=== PATIENT | male | born 1990 | race Hispanic/Latino ===

== ENCOUNTER 2020-07-07 15:15 | Observation (INO) | payer OTHER, SELFPAY ==
[2020-07-07 16:05] LABS: Basophils # (Auto) 0.1 K/mm3 (0.0-0.1); Basophils % (Auto) 1.4 % (0.0-1.8); Eosinophils # (Auto) 0.3 K/mm3 (0.0-0.4); Eosinophils % (Auto) 4.6 % (0.0-4.3); Hemoglobin 10.5 gm/dl (11.8-15.2); Lymphocytes # (Auto) 1.6 K/mm3 (1.2-5.4); Mean Corpuscular HGB Conc 33 % (32-34); Mean Corpuscular Volume 81 fl (84-94); Monocytes # (Auto) 0.7 K/mm3 (0.0-0.8); Monocytes % (Auto) 9.2 % (0.0-7.3); Platelet Count 242 K/mm3 (140-440); Red Blood Count 3.97 M/mm3 (3.65-5.03); Red Cell Distribution Width 15.7 % (13.2-15.2)
[2020-07-07 16:26] LABS: Albumin 3.6 g/dL (3.9-5); Calcium 9.1 mg/dL (8.4-10.2)
--- NOTE | 2020-07-07 17:02 | Emergency Department Report ---
ED General Adult HPI - General Chief complaint: Medical Clearance Stated complaint: UNKNOWN PUI?: No Time Seen by Provider: 07/07/20 16:43 Source: patient, RN notes reviewed, old records reviewed Mode of arrival: Ambulatory Limitations: Language Barrier - History of Present Illness Initial comments: The patient was evaluated in the emergency department for symptoms described in the history of present illness. He/she was evaluated in the context of the global COVID-19 pandemic, which necessitated consideration that the patient might be at risk for infection with the virus that causes COVID-19. Institutional protocols and algorithms that pertain to the evaluation of patients at risk for COVID-19 are in a state of rapid change based on information released by regulatory bodies including the CDC and federal and state organizations. These policies and algorithms were followed during the patient's care in the emergency department. Please note that these policies, procedures and recommendations changed on a rapid basis. Patient is a 29-year-old gentleman. He is not known to myself previously. He has a history of end-stage renal disease and is on hemodialysis. He does not have a primary care doctor or pocket cutter. He was admitted to this hospital at the end of last month for the aforementioned, and unfortunately case management was not able to secure outpatient hemodialysis chair time. He was thus instru cted to return to the emergency room. He presents to the ER today with a request for hemodialysis. He denies physical pain. He has lower extremity swelling. He denies headache, neck pain, chest pa in, abdominal pain, dysuria, fevers and chills. Severity scale (0 -10): 0 Worsens with: none Associated Symptoms: denies other symptoms - Related Data Previous Rx's Medication Instructions Recorded Last Taken Type ISOSORBIDE MONOnitrate [Imdur ER] 30 mg PO QDAY #30 tablet 06/27/20 Unknown Rx amLODIPine 10 mg PO DAILY #30 tablet 06/27/20 Unknown Rx carvediloL [Coreg] 12.5 mg PO BID #60 tablet 06/27/20 Unknown Rx hydrALAZINE [Apresoline TAB] 50 mg PO Q8HR #90 tablet 06/27/20 Unknown Rx oxyCODONE /ACETAMINOPHEN [Percocet 1 tab PO Q8H PRN #15 tablet 06/27/20 Unknown Rx 5/325 mg] Aspirin EC [Halfprin EC] 81 mg PO QDAY #30 tablet. 06/30/20 Unknown Rx Allergies Allergy/AdvReac Type Severity Reaction Status Date / Time No Known Allergies Allergy Unverified 06/22/20 09:06 ED Review of Systems ROS: Stated complaint: UNKNOWN Other details as noted in HPI Constitutional: denies: fever Respiratory: denies: cough Cardiovascular: edema. denies: chest pain Gastrointestinal: denies: abdominal pain Genitourinary: denies: dysuria Musculoskeletal: arthralgia Neurological: denies: weakness ED Past Medical Hx - Past Medical History Previous Medical History?: Yes Hx Hypertension: Yes - Surgical History Past Surgical History?: No - Social History Smoking Status: Never Smoker - Medications Home Medications: Home Medications Medication Instructions Recorded Confirmed Last Taken Type ISOSORBIDE MONOnitrate [Imdur ER] 30 mg PO QDAY #30 tablet 06/27/20 Unknown Rx amLODIPine 10 mg PO DAILY #30 tablet 06/27/20 Unknown Rx carvediloL [Coreg] 12.5 mg PO BID #60 tablet 06/27/20 Unknown Rx hydrALAZINE [Apresoline TAB] 50 mg PO Q8HR #90 tablet 06/27/20 Unknown Rx oxyCODONE /ACETAMINOPHEN [Percocet 1 tab PO Q8H PRN #15 tablet 06/27/20 Unknown Rx 5/325 mg] Aspirin EC [Halfprin EC] 81 mg PO QDAY #30 tablet. 06/30/20 Unknown Rx ED Physical Exam - General Limitations: Language Barrier General appearance: alert, in no apparent distress - Head Head exam: Present: atraumatic, normocephalic - Eye Eye exam: Present: normal appearance, EOMI. Absent: nystagmus - ENT ENT exam: Present: normal exam, normal orophraynx, mucous membranes moist, normal external ear exam - Neck Neck exam: Present: normal inspection, full ROM. Absent: tenderness, meningismus - Respiratory Respiratory exam: Present: normal lung sounds bilaterally, other (There is a right-sided thoracic permacath noted, without redness, pus or streaking). Absent: respiratory distress, wheezes, rales, rhonchi, stridor - Cardiovascular Cardiovascular Exam: Present: regular rate, normal rhythm, normal heart sounds. Absent: bradycardia, tachycardia, irregular rhythm, systolic murmur, diastolic murmur, rubs, gallop - GI/Abdominal GI/Abdominal exam: Present: soft, normal bowel sounds. Absent: distended, tenderness, guarding, rebound, rigid, pulsatile mass - Rectal Rectal exam: Present: deferred - Extremities Exam Extremities exam: Present: normal inspection, full ROM, pedal edema (2+ edema in the bilateral lower extremities), other (2+ pulses noted in the bilateral upper and lower extremities. There is no palpable cord. negative Homans sign. M uscular compartments are soft. The pelvis is stable.). Absent: calf tenderness - Back Exam Back exam: Present: normal inspection, full ROM. Absent: tenderness, CVA tenderness (R), CVA tenderness (L), paraspinal tenderness, vertebral tenderness - Neurological Exam Neurological exam: Present: alert, normal gait, other (No facial droop. Tongue midline. Extraocular movements intact bilaterally. Facial sensation intact to light touch in V1, V2, V3 distribution bilaterally. 5 and a 5 strength in 4 extremities. Sensation intact to light touch in 4 extremities.). Absent: motor sensory deficit - Psychiatric Psychiatric exam: Present: normal affect, normal mood - Skin Skin exam: Present: warm, dry, intact, normal color. Absent: rash ED Course Vital Signs 07/07/20 07/07/20 07/07/20 15:35 16:41 16:44 Temperature 98.2 F Pulse Rate 69 67 Pulse Rate [ Anterior Bilateral Throughout] Respiratory 18 18 Rate Respiratory Rate [Anterior Bilateral Throughout] Blood Pressure 132/74 126/78 Blood Pressure 126/74 [Right] O2 Sat by Pulse 99 98 Oximetry 07/07/20 07/07/20 07/07/20 16:46 17:00 17:16 Temperature Pulse Rate 62 70 63 Pulse Rate [ Anterior Bilateral Throughout] Respiratory 14 23 0 L Rate Respiratory Rate [Anterior Bilateral Throughout] Blood Pressure 126/78 126/78 126/78 Blood Pressure [Right] O2 Sat by Pulse Oximetry 07/07/20 07/07/20 17:30 17:55 Temperature Pulse Rate 72 Pulse Rate [ 60 Anterior Bilateral Throughout] Respiratory 13 Rate Respiratory 20 Rate [Anterior Bilateral Throughout] Blood Pressure 126/78 Blood Pressure [Right] O2 Sat by Pulse Oximetry ED Medical Decision Making - Lab Data Result diagrams: 07/07/20 15:50 07/07/20 15:50 Vital Signs 07/07/20 07/07/20 15:35 16:44 Temperature 98.2 F Pulse Rate 69 67 Respiratory 18 18 Rate Blood Pressure 132/74 Blood Pressure 126/74 [Right] O2 Sat by Pulse 99 98 Oximetry Lab Results 07/07/20 07/07/20 Range/Units 15:50 15:50 WBC 7.1 (4.5-11.0) K/mm3 RBC 3.97 (3.65-5.03) M/mm3 Hgb 10.5 L (11.8-15.2) gm/dl Hct 32.0 L (35.5-45.6) % MCV 81 L (84-94) fl MCH 26 L (28-32) pg MCHC 33 (32-34) % RDW 15.7 H (13.2-15.2) % Plt Count 242 (140-440) K/mm3 Lymph % (Auto) 22.0 (13.4-35.0) % Harmon % (Auto) 9.2 H (0.0-7.3) % Eos % (Auto) 4.6 H (0.0-4.3) % Baso % (Auto) 1.4 (0.0-1.8) % Lymph # 1.6 (1.2-5.4) K/mm3 Harmon # 0.7 (0.0-0.8) K/mm3 Eos # 0.3 (0.0-0.4) K/mm3 Baso # 0.1 (0.0-0.1) K/mm3 Seg Neutrophils % 62.8 (40.0-70.0) % Seg Neutrophils # 4.5 (1.8-7.7) K/mm3 Sodium 135 L (137-145) mmol/L Potassium 6.4 H* (3.6-5.0) mmol/L Chloride 101.6 (98-107) mmol/L Carbon Dioxide 21 L (22-30) mmol/L Anion Gap 19 mmol/L BUN 92 H (9-20) mg/dL Creatinine 7.4 H (0.8-1.3) mg/dL Estimated GFR 9 ml/min BUN/Creatinine Ratio 12 % Glucose 90 (75-100) mg/dL Calcium 9.1 (8.4-10.2) mg/dL Total Bilirubin 0.20 (0.1-1.2) mg/dL AST 11 (5-40) units/L ALT 11 (7-56) units/L Alkaline Phosphatase 66 (35-129) units/L Total Protein 7.6 (6.3-8.2) g/dL Albumin 3.6 L (3.9-5) g/dL Albumin/Globulin Ratio 0.9 % - EKG Data -: EKG Interpreted by Me EKG shows normal: sinus rhythm Rate: normal - Medical Decision Making Differential diagnosis, include but not limited to: Azotemia, uremia, metabolic acidosis, hyperkalemia, case management patient Assessment and plan: 29-year-old gentleman requiring urgent/emergent hemodialysis, manifest by hyperkalemia of 6.4, and azotemia, blood urea nitrogen greater than 90. He does not have a primary pocket cutter. Contacted nephrology on-call, Dr. Pruitt, he will arrange for urgent hemodialysis. Patient will be treated medically for his hyperkalemia. Hospital physician, Dr. Dru Garcia to admit Please note that I am conversant in Ukrainian. The patient denied new or different physical pain to myself. He is amenable to this plan of care. He is noted to be playing on his cellular phone at this time, and he is in no acute distress. Will defer to inpatient team to follow-up with case management Critical care attestation.: If time is entered above; I have spent that time in minutes in the direct care of this critically ill patient, excluding procedure time. ED Disposition Clinical Impression: Hyperkalemia, End-stage renal disease needing dialysis, Azotemia Volume overload Qualifiers: Hypervolemia type: unspecified Qualified Code(s): E87.70 - Fluid overload, unspecified Disposition: 09 OP ADMIT IP TO THIS HOSP Is pt being admited?: Yes Does the pt Need Aspirin: No Condition: Serious
[2020-07-07] MEDS ORDERED: ALBUTEROL 2.5 MG/3 ML NEBU IH ONE (17:12)
[2020-07-07] MEDS ORDERED: SODIUM BICARB 8.4% 50 MEQ/50 ML SYRINGE IV ONE (17:13)
[2020-07-07] MEDS ORDERED: CALCIUM GLUCONATE 1,000 MG in SODIUM CHLORIDE 0.9% 100 ML IV ONE (17:13)
[2020-07-07] MEDS ORDERED: SODIUM POLYSTYRENE 15 GM/60 ML ORAL LIQD PO ONE (17:13)
[2020-07-07] MEDS ORDERED: FUROSEMIDE 40 MG/4 ML INJ IV ONE (17:13)
[2020-07-07] MEDS ORDERED: SODIUM CHLORIDE 0.9% 100 ML IV PRN (17:27)
[2020-07-07] MEDS ORDERED: oxyCODONE /ACETAMINOPHEN 5-325MG TAB PO PRN (21:45)
--- NOTE | 2020-07-07 21:45 | History and Physical Report ---
History of Present Illness Date of examination: 07/07/20 Date of admission: 07/07/20 17:16 Chief complaint: Patient comes for next hemodialysis for last 10 days History of present illness: 29-year-old Yoruba-speaking male with history of end-stage renal disease, hyp ertension and coronary artery disease comes in for missed dialysis for the last 10 days. Patient had dialysis August last month. Patient does not have a hemodialysis set up as outpatient probably because of his immigration status. Patient has slight shortness of breath and lower extremity swelling. No orthopnea. Shortness of breath on exertion. Generalized weakness present. No fever or chills. No exposure to coronavirus. No chest pain. - Past Medical History Previous Medical History?: Yes Hypertension ESRD CAD - Surgical History Past Surgical History?: No - Social History Smoking Status: Never Smoker -Family history Hypertension - Medications Home Medications: Home Medications Medication Instructions Recorded Confirmed Last Taken Type ISOSORBIDE MONOnitrate [Imdur ER] 30 mg PO QDAY #30 tablet 06/27/20 Unknown Rx amLODIPine 10 mg PO DAILY #30 tablet 06/27/20 Unknown Rx carvediloL [Coreg] 12.5 mg PO BID #60 tablet 06/27/20 Unknown Rx hydrALAZINE [Apresoline TAB] 50 mg PO Q8HR #90 tablet 06/27/20 Unknown Rx oxyCODONE /ACETAMINOPHEN [Percocet 1 tab PO Q8H PRN #15 tablet 06/27/20 Unknown Rx 5/325 mg] Aspirin EC [Halfprin EC] 81 mg PO QDAY #30 tablet. 06/30/20 Unknown Rx Review of Systems ROS: Stated complaint: Generalized weakness and lower extremity swelling Missed hemodialysis Other details as noted in HPI Constitutional no weight loss or weight gain no fever or chills HEENT no sore throat no post nasal drip no diplopia Neck no neck stiffness no lymph gland enlargement Chest and lungs no shortness of breath cough or wheezing CVS no chest pain no diaphoresis no palpitations GI no nausea no vomiting no diarrhea Genitourinary system no dysuria no flank pain Musculoskeletal system no muscle pains no joint pains [employer] no syncope no seizures Skin no rash no itching Psychiatric no depression no homicidal or suicidal tendencies Hematologic no lymphedema or bruising Endocrine no polydipsia no polyuria no cold intolerance no heat intolerance Medications and Allergies Allergies Allergy/AdvReac Type Severity Reaction Status Date / Time No Known Allergies Allergy Unverified 06/22/20 09:06 Home Medications Medication Instructions Recorded Confirmed Last Taken Type ISOSORBIDE MONOnitrate [Imdur ER] 30 mg PO QDAY #30 tablet 06/27/20 Unknown Rx amLODIPine 10 mg PO DAILY #30 tablet 06/27/20 Unknown Rx carvediloL [Coreg] 12.5 mg PO BID #60 tablet 06/27/20 Unknown Rx hydrALAZINE [Apresoline TAB] 50 mg PO Q8HR #90 tablet 06/27/20 Unknown Rx oxyCODONE /ACETAMINOPHEN [Percocet 1 tab PO Q8H PRN #15 tablet 06/27/20 Unknown Rx 5/325 mg] Aspirin EC [Halfprin EC] 81 mg PO QDAY #30 tablet. 06/30/20 Unknown Rx Active Meds: Active Medications Sodium Chloride (Nacl 0.9%) 100 mls @ 999 mls/hr IV BETHEL PRN PRN Reason: Hypotension Exam - Constitutional Vitals: Temp Pulse Resp BP Pulse Ox 98.2 F 69 20 130/76 98 07/07/20 18:45 07/07/20 19:30 07/07/20 18:51 07/07/20 19:30 07/07/20 18:51 General appearance: Present: mild distress, well-nourished - EENT Eyes: Present: PERRL ENT: hearing intact, clear oral mucosa - Neck Neck: Present: supple, normal ROM - Respiratory Respiratory effort: normal Respiratory: bilateral: CTA - Cardiovascular Heart rate: 78 Rhythm: regular Heart Sounds: Present: S1 & S2. Absent: rub, click - Extremities Extremities: pulses symmetrical, No edema Peripheral Pulses: within normal limits - Abdominal General gastrointestinal: Present: soft, non-tender, tender, non-distended, normal bowel sounds Male genitourinary: Present: normal, left inguinal hernia - Rectal Rectal Exam: deferred - Integumentary Integumentary: Present: clear, warm, dry - Musculoskeletal Musculoskeletal: gait normal, strength equal bilaterally - Psychiatric Psychiatric: appropriate mood/affect, intact judgment & insight - Neurologic Neurologic: CNII-XII intact, moves all extremities, other HEART Score - HEART Score History: Slightly suspicious Age: < 45 Risk factors: 1-2 risk factors Troponin: < normal limit - Critical Actions Critical Actions: 0-3 pts:0.9-1.7%risk of adverse cardiac event.Candidate for discharge Results - Labs CBC & Chem 7: 07/07/20 15:50 07/07/20 15:50 Labs: Laboratory Last Values WBC 7.1 K/mm3 (4.5-11.0) 07/07/20 15:50 RBC 3.97 M/mm3 (3.65-5.03) 07/07/20 15:50 Hgb 10.5 gm/dl (11.8-15.2) L 07/07/20 15:50 Hct 32.0 % (35.5-45.6) L 07/07/20 15:50 MCV 81 fl (84-94) L 07/07/20 15:50 MCH 26 pg (28-32) L 07/07/20 15:50 MCHC 33 % (32-34) 07/07/20 15:50 RDW 15.7 % (13.2-15.2) H 07/07/20 15:50 Plt Count 242 K/mm3 (140-440) 07/07/20 15:50 Lymph % (Auto) 22.0 % (13.4-35.0) 07/07/20 15:50 Bay % (Auto) 9.2 % (0.0-7.3) H 07/07/20 15:50 Eos % (Auto) 4.6 % (0.0-4.3) H 07/07/20 15:50 Baso % (Auto) 1.4 % (0.0-1.8) 07/07/20 15:50 Lymph # 1.6 K/mm3 (1.2-5.4) 07/07/20 15:50 Bay # 0.7 K/mm3 (0.0-0.8) 07/07/20 15:50 Eos # 0.3 K/mm3 (0.0-0.4) 07/07/20 15:50 Baso # 0.1 K/mm3 (0.0-0.1) 07/07/20 15:50 Seg Neutrophils % 62.8 % (40.0-70.0) 07/07/20 15:50 Seg Neutrophils # 4.5 K/mm3 (1.8-7.7) 07/07/20 15:50 Sodium 135 mmol/L (137-145) L 07/07/20 15:50 Potassium 6.4 mmol/L (3.6-5.0) H* 07/07/20 15:50 Chloride 101.6 mmol/L (98-107) 07/07/20 15:50 Carbon Dioxide 21 mmol/L (22-30) L 07/07/20 15:50 Anion Gap 19 mmol/L 07/07/20 15:50 BUN 92 mg/dL (9-20) H 07/07/20 15:50 Creatinine 7.4 mg/dL (0.8-1.3) H 07/07/20 15:50 Estimated GFR 9 ml/min 07/07/20 15:50 BUN/Creatinine Ratio 12 % 07/07/20 15:50 Glucose 90 mg/dL (75-100) 07/07/20 15:50 Calcium 9.1 mg/dL (8.4-10.2) 07/07/20 15:50 Total Bilirubin 0.20 mg/dL (0.1-1.2) 07/07/20 15:50 AST 11 units/L (5-40) 07/07/20 15:50 ALT 11 units/L (7-56) 07/07/20 15:50 Alkaline Phosphatase 66 units/L (35-129) 07/07/20 15:50 Total Protein 7.6 g/dL (6.3-8.2) 07/07/20 15:50 Albumin 3.6 g/dL (3.9-5) L 07/07/20 15:50 Albumin/Globulin Ratio 0.9 % 07/07/20 15:50 Short CBC 07/07/20 Range/Units 15:50 WBC 7.1 (4.5-11.0) K/mm3 Hgb 10.5 L (11.8-15.2) gm/dl Hct 32.0 L (35.5-45.6) % Plt Count 242 (140-440) K/mm3 BMP 07/07/20 15:50 Sodium 135 L Potassium 6.4 H* Chloride 101.6 Carbon Dioxide 21 L BUN 92 H Creatinine 7.4 H Glucose 90 Calcium 9.1 Liver Function 07/07/20 Range/Units 15:50 Total Bilirubin 0.20 (0.1-1.2) mg/dL AST 11 (5-40) units/L ALT 11 (7-56) units/L Alkaline Phosphatase 66 (35-129) units/L Albumin 3.6 L (3.9-5) g/dL Gardiner/IV: IV Catheter Type [Left Hand] INT / Saline Lock IV Catheter Type [Right INT / Saline Lock Internal Jugular] Assessment and Plan Advance Directives: Yes (Full code) VTE prophylaxis?: Chemical Plan of care discussed with patient/family: Yes - Patient Problems (1) Hyperkalemia Current Visit: Yes Status: Acute Plan to address problem: Hyperkalemia treated in the emergency room Patient received calcium gluconate sodium bicarbonate and Kayexalate in the emergency room Also patient to get hemodialysis with low potassium bath (2) End-stage renal disease needing dialysis Current Visit: Yes Status: Acute Plan to address problem: Continue hemodialysis Nephrology consult requested (3) Volume overload Current Visit: Yes Status: Acute Qualifiers: Hypervolemia type: unspecified Qualified Code(s): E87.70 - Fluid overload, unspecified Plan to address problem: Patient is hemodialysis and increased ultrafiltration (4) Hypertension Current Visit: Yes Status: Chronic Qualifiers: Hypertension type: essential hypertension Qualified Code(s): I10 - Essential (primary) hypertension Plan to address problem: Continue antihypertensives Adjust medications if necessary (5) Coronary artery disease Current Visit: Yes Status: Acute Plan to address problem: Continue isosorbide mononitrate (6) DVT prophylaxis Current Visit: No Status: Acute Plan to address problem: Heparin subcu 5000 every 12 and GI prophylaxis (7) Discharge planning issues Current Visit: Yes Status: Acute Plan to address problem: Patient admitted in observation status If potassium level is normal and finishes hemodialysis patient can be discharged
[2020-07-07] MEDS ORDERED: ACETAMINOPHEN 325 MG TAB PO PRN (21:46)
[2020-07-07] MEDS ORDERED: ONDANSETRON 4 MG/2 ML INJ IV PRN (21:46)
[2020-07-07] MEDS ORDERED: METOCLOPRAMIDE 10 MG/2 ML INJ IV PRN ×2 (21:46→21:57)
[2020-07-07] MEDS ORDERED: HYDROmorphone 1 MG/1 ML INJ IV PRN (21:46)
[2020-07-07] MEDS: ASPIRIN EC 81 MG TAB PO SCH (22:17)
[2020-07-07] MEDS: FAMOTIDINE 10 MG TAB PO SCH (22:18)
[2020-07-07] MEDS: carvediloL 12.5 MG TAB PO SCH (22:18)
[2020-07-07] MEDS: hydrALAZINE 25 MG TAB PO SCH (22:19)
[2020-07-07] MEDS: HEPARIN 5,000 UNIT/1 ML VIAL SUB-Q SCH (22:19)
[2020-07-07] MEDS: amLODIPine 10 MG TAB PO SCH (22:24)
[2020-07-08] MEDS: hydrALAZINE 25 MG TAB PO SCH ×2 (06:41→14:00)
--- NOTE | 2020-07-08 08:45 | Consultation ---
History of Present Illness - Reason for Consult Consult date: 07/08/20 end stage renal disease Requesting physician: CHAU MYERS - History of Present Illness 29-year-old male with a history of end-stage renal disease who does not have an outpatient dialysis clinic. Presents to the hospital for dialysis. He denies any chest pain, shortness of breath or palpitations. No nausea or vomiting. He had diarrhea for daily couple of days prior to presentation but it has resolved. No lower extremity swelling. Past History Past Medical History: ESRD, hypertension Past Surgical History: Other (Permacath placement) Social history: lives with family. denies: prescription drug abuse, IV drug use Family history: no significant family history Medications and Allergies Allergies Allergy/AdvReac Type Severity Reaction Status Date / Time No Known Allergies Allergy Unverified 06/22/20 09:06 Home Medications Medication Instructions Recorded Confirmed Last Taken Type ISOSORBIDE MONOnitrate [Imdur ER] 30 mg PO QDAY #30 tablet 06/27/20 Unknown Rx amLODIPine 10 mg PO DAILY #30 tablet 06/27/20 Unknown Rx carvediloL [Coreg] 12.5 mg PO BID #60 tablet 06/27/20 Unknown Rx hydrALAZINE [Apresoline TAB] 50 mg PO Q8HR #90 tablet 06/27/20 Unknown Rx oxyCODONE /ACETAMINOPHEN [Percocet 1 tab PO Q8H PRN #15 tablet 06/27/20 Unknown Rx 5/325 mg] Aspirin EC [Halfprin EC] 81 mg PO QDAY #30 tablet. 06/30/20 Unknown Rx Active Meds: Active Medications Acetaminophen (Tylenol) 650 mg PO Q4H PRN PRN Reason: Pain MILD(1-3)/Fever >100.5/SORIA Amlodipine Besylate (Amlodipine) 10 mg PO DAILY [facility] Last Admin: 07/07/20 22:24 Dose: 10 mg Documented by: Aspirin (Halfprin Ec) 81 mg PO QDAY [facility] Last Admin: 07/07/20 22:17 Dose: 81 mg Documented by: Carvedilol (Coreg) 12.5 mg PO BID [facility] Last Admin: 07/07/20 22:18 Dose: 12.5 mg Documented by: Famotidine (Pepcid) 10 mg PO BID [facility] Last Admin: 07/07/20 22:18 Dose: 10 mg Documented by: Heparin Sodium (Porcine) (Heparin) 5,000 unit SUB-Q Q12HR [facility] Last Admin: 07/07/20 22:19 Dose: 5,000 unit Documented by: Hydralazine HCl (Apresoline) 50 mg PO Q8HR [facility] Last Admin: 07/08/20 06:41 Dose: 50 mg Documented by: Hydromorphone HCl (Dilaudid) 0.5 mg IV Q3H PRN PRN Reason: Pain , Severe (7-10) Sodium Chloride (Nacl 0.9%) 100 mls @ 999 mls/hr IV BETHEL PRN PRN Reason: Hypotension Isosorbide Mononitrate (Imdur) 30 mg PO QDAY [facility] Last Admin: 07/07/20 22:18 Dose: 30 mg Documented by: Metoclopramide HCl (Reglan) 5 mg IV Q6H PRN PRN Reason: Nausea And Vomiting Ondansetron HCl (Zofran) 4 mg IV Q8H PRN PRN Reason: Nausea And Vomiting Oxycodone/Acetaminophen (Percocet 5/325) 1 tab PO Q8H PRN PRN Reason: Pain, Moderate (4-6) Sodium Chloride (Sodium Chloride Flush Syringe 10 Ml) 10 ml IV BID [facility] Last Admin: 07/07/20 22:14 Dose: 10 ml Documented by: Sodium Chloride (Sodium Chloride Flush Syringe 10 Ml) 10 ml IV PRN PRN PRN Reason: LINE FLUSH Review of Systems All systems: negative (As noted in the history of present illness) Exam - Vital Signs Vital signs: Vital Signs Temp Pulse Resp BP Pulse Ox 98.2 F 69 18 132/74 99 07/07/20 15:35 07/07/20 15:35 07/07/20 15:35 07/07/20 15:35 07/07/20 15:35 - Physical Exam Narrative exam: Young male lying in bed in no acute distress HEENT: NCAT, pink oral mucous membrane Neck: Supple, no venous distention CVS: S1S2 RRR with no murmur, rub or gallop Chest: Clear to auscultation Abdomen: Protuberant, soft, nontender, no organomegaly, bowel sounds are present Extremities: No edema Genitourinary deferred Skin warm and dry Neuro: Awake, alert no focal deficits Results - Lab Results 07/07/20 15:50 07/07/20 15:50 Most recent lab results Calcium 9.1 mg/dL (8.4-10.2) 07/07/20 15:50 Assessment and Plan - Patient Problems (1) Hyperkalemia Current Visit: Yes Status: Acute Plan to address problem: Hyperkalemia secondary to missed dialysis treatment. Patient received dialysis last night. We will dialyze again today and follow-up potassium. Should be okay to discharge from my standpoint after dialysis today. (2) Hypertensive chronic kidney disease with stage 5 chronic kidney disease or end stage renal disease Current Visit: Yes Status: Acute Plan to address problem: Continue current medications. Follow-up blood pressure (3) End-stage renal disease needing dialysis Current Visit: Yes Status: Acute Plan to address problem: Patient presented with hyperkalemia and metabolic acidosis. Hemodialysis again today and should be okay to discharge. He will need to continue to come to the emergency room for dialysis as unable to place him at the clinic since patient is undocumented (4) Anemia in chronic kidney disease (CKD) Current Visit: Yes Status: Acute Plan to address problem: Give erythropoietin on dialysis
[2020-07-08] MEDS: FAMOTIDINE 10 MG TAB PO SCH (09:52)
[2020-07-08] MEDS: HEPARIN 5,000 UNIT/1 ML VIAL SUB-Q SCH (09:52)
[2020-07-08] MEDS: carvediloL 12.5 MG TAB PO SCH (09:52)
[2020-07-08] MEDS: ASPIRIN EC 81 MG TAB PO SCH (09:52)
[2020-07-08] MEDS: amLODIPine 10 MG TAB PO SCH (09:52)
[2020-07-08 11:19] LABS: Basophils # (Auto) 0.1 K/mm3 (0.0-0.1); Basophils % (Auto) 1.2 % (0.0-1.8); Eosinophils # (Auto) 0.2 K/mm3 (0.0-0.4); Hemoglobin 10.3 gm/dl (11.8-15.2); Lymphocytes # (Auto) 1.3 K/mm3 (1.2-5.4); Lymphocytes % (Auto) 21.6 % (13.4-35.0); Mean Corpuscular HGB Conc 33 % (32-34); Mean Corpuscular Volume 79 fl (84-94); Monocytes # (Auto) 0.6 K/mm3 (0.0-0.8); Monocytes % (Auto) 10.1 % (0.0-7.3); Platelet Count 204 K/mm3 (140-440); Red Blood Count 3.93 M/mm3 (3.65-5.03); Red Cell Distribution Width 15.5 % (13.2-15.2)
[2020-07-08 11:50] LABS: Albumin 3.3 g/dL (3.9-5); Calcium 8.7 mg/dL (8.4-10.2)
[2020-07-08 17:31] VITALS: BP 127/90
--- NOTE | 2020-07-08 18:02 | Discharge Summary ---
Providers - Providers Date of Admission: 07/07/20 17:16 Date of discharge: 07/08/20 Attending physician: JESSEE GUNTER 07/07/20 17:05 Consult to Physician [CONS] Urgent Comment: Consulting Provider: KIKA MUNIZ Physician Instructions: Reason For Exam: esrd Primary care physician: [employer]CRA[employer]INE [employer]ER Hospitalization Condition: Fair Hospital course: 29-year-old male with a history of hypertension coronary artery disease end- stage renal disease was hospitalized approximately 2 weeks ago. Patient comes in with shortness of breath weakness BUN creatinine found to be 92/7.4 with hyperkalemia. Patient diagnosed with acute on chronic kidney disease. Stage V chronic kidney disease. Patient received dialysis yesterday and again today and felt much better. Shortness of breath resolved. 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 (3) Hyperkalemia Status: Acute Comment: Resolved after hemodialysis x2. (4) Hypertensive chronic kidney disease with stage 5 chronic kidney disease or end stage renal disease Status: Acute (5) Volume overload Status: Acute Qualifiers: Hypervolemia type: unspecified Qualified Code(s): E87.70 - Fluid overload, unspecified Comment: Resolved with hemodialysis x2. (6) Hypertensive urgency Status: Resolved Core Measure Documentation - Palliative Care Palliative Care/ Comfort Measures: Not Applicable - Core Measures Any of the following diagnoses?: none Exam - Constitutional Vitals: Temp Pulse Resp BP Pulse Ox 99.2 F 75 15 127/90 99 07/08/20 16:33 07/08/20 16:33 07/08/20 16:33 07/08/20 16:33 07/08/20 16:33 General appearance: Present: no acute distress, well-nourished - EENT Eyes: Present: PERRL ENT: hearing intact, clear oral mucosa - Neck Neck: Present: supple, normal ROM - Respiratory Respiratory effort: normal Respiratory: bilateral: CTA - Cardiovascular Heart Sounds: Present: S1 & S2. Absent: rub, click - Extremities Extremities: pulses symmetrical, No edema Peripheral Pulses: within normal limits - Abdominal General gastrointestinal: Present: soft, non-tender, non-distended, normal bowel sounds Male genitourinary: Present: normal - Integumentary Integumentary: Present: clear, warm, dry - Musculoskeletal Musculoskeletal: gait normal, strength equal bilaterally - Psychiatric Psychiatric: appropriate mood/affect, intact judgment & insight - Neurologic Neurologic: CNII-XII intact, moves all extremities Plan Activity: no restrictions Follow up with: PRIMARY CARE, [Primary Care Provider] - 7 Days
== END 2020-07-08 20:08 | disposition home or self-care (01) ==
LOC: ED 15:15 → 3A 17:16
PROVIDERS: ADMIT Internal Medicine; ATTEND Internal Medicine
DX: I16.0 Hypertensive urgency (principal); I12.0 Hypertensive chronic kidney disease with stage 5 chronic kidney disease or end stage renal disease; N18.6 End stage renal disease; I25.10 Atherosclerotic heart disease of native coronary artery without angina pectoris; D63.1 Anemia in chronic kidney disease; E87.70 Fluid overload, unspecified; E87.5 Hyperkalemia; R79.89 Other specified abnormal findings of blood chemistry; Z79.82 Long term (current) use of aspirin; Z99.2 Dependence on renal dialysis
CPT/HCPCS: 36415; 80053; 85025; 93005; 94644; 96372; 96374; 96375; 99284; G0378; J0610; J1644; J1940

== ENCOUNTER 2020-07-12 09:23 | Emergency (ER) | payer SELFPAY ==
[2020-07-12 09:29] VITALS: BP 128/89
== END 2020-07-12 12:45 ==
LOC: ED 09:23
DX: Z99.2 Dependence on renal dialysis (principal); Z53.21 Procedure and treatment not carried out due to patient leaving prior to being seen by health care provider

== ENCOUNTER 2021-02-24 10:46 | Emergency (ER) | payer SELFPAY ==
--- NOTE | 2021-02-24 11:33 | Event Note ---
ED Screening Note Date of service: 02/24/21 Time: 11:32 ED Screening Note: Patient sent here from [place] for regular dialysis treatment due to patient living in [facility] Last dialysis treatment was Saturday This initial assessment/diagnostic orders/clinical plan/treatment(s) is/are subject to change based on patients health status, clinical progression and re- assessment by fellow clinical providers in the ED. Further treatment and workup at subsequent clinical providers discretion. Patient/guardian urged not to elope from the ED as their condition may be serious if not clinically assessed and managed. Initial orders include: Labs
[2021-02-24 11:41] VITALS: BP 151/94
[2021-02-24 13:15] LABS: Basophils # (Auto) 0.1 K/mm3 (0.0-0.1); Basophils % (Auto) 1.9 % (0.0-1.8); Eosinophils # (Auto) 0.1 K/mm3 (0.0-0.4); Eosinophils % (Auto) 2.6 % (0.0-4.3); Hematocrit 24.7 % (35.5-45.6); Hemoglobin 8.5 gm/dl (11.8-15.2); Lymphocytes # (Auto) 0.8 K/mm3 (1.2-5.4); Lymphocytes % (Auto) 16.1 % (13.4-35.0); Mean Corpuscular HGB Conc 34 % (32-34); Mean Corpuscular Volume 84 fl (84-94); Monocytes # (Auto) 0.6 K/mm3 (0.0-0.8); Monocytes % (Auto) 11.6 % (0.0-7.3); Platelet Count 160 K/mm3 (140-440); Red Blood Count 2.96 M/mm3 (3.65-5.03); Red Cell Distribution Width 15.3 % (13.2-15.2)
[2021-02-24 13:35] LABS: Calcium 7.8 mg/dL (8.4-10.2)
== END 2021-02-24 20:10 | disposition left against medical advice (07) ==
LOC: ED 10:46
DX: Z00.8 Encounter for other general examination (principal); Z53.21 Procedure and treatment not carried out due to patient leaving prior to being seen by health care provider
CPT/HCPCS: 36415; 80048; 85025